=== PATIENT | male | born 2000 | race Caucasian/White ===

== ENCOUNTER 2021-03-27 21:21 | Emergency (ER) | payer OTHER ==
[~2021-03-27 21:21] MED LIST: CIPRO500 M1 PO; CIPRO500 MG PO; DICYCLOMINE HCL20 MG PO; FIORICET1 EACH PO; LEVAQUIN500 MG PO; METRONIDAZOLE500 MG PO; NORCO 5-325 TA1 EACH PO; PERCOCET 5-3251 EACH PO; PHENERGAN25 M1 PO; PREDNISONE 20MG20 MG PO; PROTONIX 40MG T40 MG PO; ULTRAM50 MG PO; URO-MP CAPSULE1 EACH PO; VOLTAREN **OUT75 MG PO; ZOFRAN4 MG PO; ZOLOFT50 MG PO
[2021-03-27 22:24] LABS: BILIRUBIN NEGATIVE (NEGATIVE); BLOOD NEGATIVE Ery/uL (NEGATIVE); CLARITY CLEAR (CLEAR); COLOR YELLOW (YELLOW); GLUCOSE (U) NORMAL (NORMAL); LEUKOCYTES NEGATIVE Leu/uL (NEGATIVE); NITRITE NEGATIVE (NEGATIVE); PROTEIN NEGATIVE (NEGATIVE); UROBILINOGEN 0.2 mg/dL (0.2-1.0); pH 7.5 (5.0-9.0)
[2021-03-27 22:36] LABS: BASOPHIL 0.9 % (0-2); HCT 40.1 % (42.0-52.0); HGB 14.2 g/dl (13.2-18.0); LYMPHOCYTE 27.8 % (15-48); MCH 29.5 pg (25.0-31.0); MCHC 35.4 g/dL (32.0-36.0); MCV 83.4 fL (78.0-100.0); MONOCYTE 8.4 % (0-12); NEUTROPHIL 60.4 % (41-80); NRBC 0; PLT 241 K/uL (150-400); RBC 4.81 M/uL (4.70-6.00); WBC 6.7 K/uL (4.0-10.5)
[2021-03-27 23:02] LABS: ALBUMIN 3.6 g/dL (3.4-5.0); BILIRUBIN - TOTAL 0.2 mg/dL (0.2-1.0); CREATININE 0.8 mg/dL (0.67-1.17); GLOBULIN (CALCULATION) 4.1 g/dL; POTASSIUM 3.9 mmol/L (3.5-5.1); TOTAL PROTEIN 7.7 g/dL (6.4-8.2)
== END 2021-03-27 23:24 | disposition home or self-care (01) ==
LOC: FER 21:21
PROVIDERS: Emergency Medicine
DX: R10.9 Unspecified abdominal pain (principal); M54.9 Dorsalgia, unspecified; G89.29 Other chronic pain; Z79.1 Long term (current) use of non-steroidal anti-inflammatories (NSAID)
CPT/HCPCS: 36415; 80053; 81003; 85025; 99284; J1885

== ENCOUNTER 2021-04-29 23:36 | Emergency (ER) | payer OTHER ==
[2021-04-29 23:57] LABS: BASOPHIL 0.5 % (0-2); HGB 16.1 g/dl (13.2-18.0); LYMPHOCYTE 6.4 % (15-48); MCHC 34.3 g/dL (32.0-36.0); MCV 84.5 fL (78.0-100.0); MPV 9.7 fL (6.0-9.5); NEUTROPHIL 86.7 % (41-80); NRBC 0; PLT 241 K/uL (150-400); RBC 5.56 M/uL (4.70-6.00); RDW 12.5 % (11.5-14.0); WBC 8.1 K/uL (4.0-10.5)
[2021-04-30 00:17] LABS: BILIRUBIN - TOTAL 0.6 mg/dL (0.2-1.0); BUN/CREAT RATIO (CALC) 15.6 RATIO; CREATININE 0.9 mg/dL (0.67-1.17); GLOBULIN (CALCULATION) 4.1 g/dL; POTASSIUM 3.9 mmol/L (3.5-5.1); TOTAL PROTEIN 8.1 g/dL (6.4-8.2)
[2021-04-30 00:48] LABS: BILIRUBIN NEGATIVE (NEGATIVE); BLOOD TRACE-INTACT Ery/uL (NEGATIVE); CLARITY CLEAR (CLEAR); COLOR YELLOW (YELLOW); GLUCOSE (U) NORMAL (NORMAL); LEUKOCYTES NEGATIVE Leu/uL (NEGATIVE); NITRITE NEGATIVE (NEGATIVE); PROTEIN NEGATIVE (NEGATIVE); SPECIFIC GRAVITY >=1.030 (1.001-1.030); UROBILINOGEN 0.2 mg/dL (0.2-1.0); pH 5.5 (5.0-9.0)
[2021-04-30 00:53] LABS: BACTERIA TRACE
[2021-04-30] MEDS ORDERED: NORCO 5-325 TA1 EACH PO (05:37)
[2021-04-30] MEDS ORDERED: LEVSIN-SL0.125 M1 SL (05:37)
[2021-04-30] MEDS ORDERED: ONDANSETRON ODT4 MG SL (05:37)
== END 2021-04-30 06:11 | disposition home or self-care (01) ==
LOC: FER 23:36
PROVIDERS: Emergency Medicine Emergency Medical Services
DX: R10.84 Generalized abdominal pain (principal); R11.2 Nausea with vomiting, unspecified; R19.7 Diarrhea, unspecified; K76.0 Fatty (change of) liver, not elsewhere classified; Z20.822 Contact with and (suspected) exposure to COVID-19; Z90.49 Acquired absence of other specified parts of digestive tract; Z88.2 Allergy status to sulfonamides; Z79.1 Long term (current) use of non-steroidal anti-inflammatories (NSAID); Z79.899 Other long term (current) drug therapy
CPT/HCPCS: 36415; 80053; 81001; 83690; 85025; 96372; J0500; J1170; J1885; J2405; J2550; J7030; Q9967; U0002

== ENCOUNTER 2021-06-06 00:02 | Emergency (ER) | payer OTHER ==
[~2021-06-06 00:02] MED LIST changes: +LEVSIN-SL0.125 M1 SL; +ONDANSETRON ODT4 MG SL
[2021-06-06 01:48] LABS: BASOPHIL 0.4 % (0-2); EOSINOPHIL 0.9 % (0-5); HCT 46.5 % (42.0-52.0); HGB 15.6 g/dl (13.2-18.0); MCH 29.1 pg (25.0-31.0); MCHC 33.5 g/dL (32.0-36.0); MCV 86.6 fL (78.0-100.0); MONOCYTE 6.9 % (0-12); MPV 10.6 fL (6.0-9.5); NEUTROPHIL 75.5 % (41-80); NRBC 0; PLT 289 K/uL (150-400); RBC 5.37 M/uL (4.70-6.00); RDW 12.7 % (11.5-14.0); WBC 9.6 K/uL (4.0-10.5)
[2021-06-06 02:06] LABS: ALBUMIN 3.7 g/dL (3.4-5.0); ALKALINE PHOSHATASE 61 U/L (46-116); ALT 43 U/L (16-63); AST 20 U/L (15-37); BILIRUBIN - TOTAL 0.3 mg/dL (0.2-1.0); BUN 24 mg/dL (7-18); BUN/CREAT RATIO (CALC) 25.8 RATIO; CHLORIDE 103 mmol/L (98-107); CO2 (BICARBONATE) 29 mmol/L (21-32); CREATININE 0.93 mg/dL (0.67-1.17); GLOBULIN (CALCULATION) 4.2 g/dL; GLUCOSE 112 mg/dL (74-106); MAGNESIUM 1.9 mg/dL (1.8-2.4); POTASSIUM 4.5 mmol/L (3.5-5.1); TOTAL PROTEIN 7.9 g/dL (6.4-8.2)
[2021-06-06 02:06] LABS: BILIRUBIN NEGATIVE (NEGATIVE); BLOOD NEGATIVE Ery/uL (NEGATIVE); CLARITY CLEAR (CLEAR); COLOR YELLOW (YELLOW); GLUCOSE (U) NORMAL (NORMAL); LEUKOCYTES NEGATIVE Leu/uL (NEGATIVE); NITRITE NEGATIVE (NEGATIVE); PROTEIN NEGATIVE (NEGATIVE); UROBILINOGEN 0.2 mg/dL (0.2-1.0); pH 7.5 (5.0-9.0)
[2021-06-06 02:07] LABS: ACETAMINOPHEN (TYLENOL) < 2.0 ug/mL (10.0-30.0)
[2021-06-06 02:11] LABS: AMPHETAMINES NEGATIVE (NEGATIVE); BARBITURATES NEGATIVE (NEGATIVE); ECSTASY (MDMA) NEGATIVE (NEGATIVE); MARIJUANA (THC) NEGATIVE (NEGATIVE); METHADONE NEGATIVE (NEGATIVE); OPIATES NEGATIVE (NEGATIVE); OXYCODONE NEGATIVE (NEGATIVE)
== END 2021-06-06 12:57 | disposition other institution (70) ==
LOC: FER 00:02
PROVIDERS: Emergency Medicine Emergency Medical Services
DX: T39.8X2A Poisoning by other nonopioid analgesics and antipyretics, not elsewhere classified, intentional self-harm, initial encounter (principal); G89.29 Other chronic pain; M54.9 Dorsalgia, unspecified; Z88.1 Allergy status to other antibiotic agents; Z79.899 Other long term (current) drug therapy; Z20.822 Contact with and (suspected) exposure to COVID-19; Y92.9 Unspecified place or not applicable
CPT/HCPCS: 36415; 80053; 80305; 81003; 83735; 85025; 93005; G0480; J1885; U0002